=== PATIENT | female | born 1950 | race Two or more races ===

== ENCOUNTER 2018-09-10 10:05 | Outpatient (CLI) | payer MEDICARE, MEDICAID | END 2018-09-10 23:59 | disposition home or self-care (01) | LOC: WOU 10:05 | PROVIDERS: ATTEND Podiatrist Foot & Ankle Surgery | DX: S82.402A Unspecified fracture of shaft of left fibula, initial encounter for closed fracture (principal); M65.872 Other synovitis and tenosynovitis, left ankle and foot; X58.XXXA Exposure to other specified factors, initial encounter; Y92.89 Other specified places as the place of occurrence of the external cause; R60.0 Localized edema | CPT/HCPCS: G0463 ==